=== PATIENT | female | born 1990 | race Caucasian/White ===

== ENCOUNTER 2017-10-17 13:37 | Emergency (ER) | payer SELFPAY ==
[~2017-10-17] VITALS: Ht 160 cm; Wt 87.5 kg
[2017-10-17 13:42] VITALS: Ht 160 cm; Wt 87.5 kg
== END 2017-10-17 14:42 | disposition left against medical advice (07) ==
LOC: FTE 13:37
DX: Z53.21 Procedure and treatment not carried out due to patient leaving prior to being seen by health care provider (principal)